=== PATIENT | female | born 1965 | race Caucasian/White ===

== ENCOUNTER → 2022-07-31 | Outpatient (CLI) | payer BC ==
[2022-07-31 14:26] LABS: INR 0.9 (<1.2); Partial Thromboplastin Time 23.6 sec (22.0-30.0); Prothrombin Time 10.1 sec (9.0-12.0)
[2022-07-31 18:26] LABS: HGB 12.2 g/dL (12.0-15.0); MCH 32.8 pg (27.0-32.0); MCV 99.5 fL (80.0-97.0); Mean Platelet Volume 9.4 fL (9.5-12.2); NRBC Per 100 WBC 0 /100 WBCS (0.0-0.0); Platelet Count 251 X 10*3/uL (140-440); RBC 3.72 X 10*6/uL (4.10-5.20)
[2022-07-31 19:23] LABS: Appearance,Urine Clear (Clear); Bilirubin,Urine Negative (Negative); Blood,Urine Negative (Negative); Color,Urine Yellow (Yellow); Ketones,Urine Negative (Negative); Nitrite,Urine Negative (Negative); PH, Urine 7.5 (5.0-8.0); Specific Gravity,Urine 1.015 (1.001-1.030)
[2022-07-31 19:30] LABS: African American GFR (CKD) 118.1 (60.0-200.0); Albumin 4.3 g/dL (3.8-4.9); Albumin/Globulin Ratio 2.05 (1.60-3.17); Anion Gap 11.1 mmol/L (10.00-18.00); BUN/Creat Ratio 24.67 Ratio (12.00-20.00); Blood Urea Nitrogen 14.8 mg/dL (9.0-27.0); Calcium 9.4 mg/dL (8.7-10.3); Carbon Dioxide 27.9 mmol/L (20.0-27.5); Globulin 2.1 g/dL (1.6-3.3); Non-African American GFR(CKD) 101.9 (60.0-200.0); Potassium 4.2 mmol/L (3.5-5.5); Total Bilirubin 0.3 mg/dL (0.30-1.20); Total Protein 6.4 g/dL (6.2-8.2)
== END | disposition home or self-care (01) ==
LOC: LABPAT 12:02
PROVIDERS: ATTEND Orthopaedic Surgery
DX: Z01.818 Encounter for other preprocedural examination (principal); R94.31 Abnormal electrocardiogram [ECG] [EKG]
CPT/HCPCS: 80053; 81003; 85027; 85610; 85730; 87070; 93005

== ENCOUNTER → 2022-08-03 | Outpatient (CLI) | payer BC ==
--- NOTE | 2022-08-03 11:22 | CT ---
EXAMINATION TYPE: CT right knee - [facility] Protocol DATE OF EXAM: 08/03/2022 COMPARISON: NONE HISTORY: Right knee pain and osteoarthritis. CT DLP: 1150 mGycm. Automated Exposure Control for Dose Reduction was Utilized. TECHNIQUE: CT scan of the bilateral lower extremities performed without contrast. FINDINGS: Exam for surgical planning and not for diagnostic purposes. Scanning of the bilateral hips shows evidence of prior ventral wall hernia repair surgery overlying the anterior pelvis. No signifi cant incidental finding otherwise. Scanning of the right knee shows moderate to severe narrowing and moderate spurring lateral tibial fe moral compartment. There is moderate to severe narrowing with mild to moderate spurring patellofemora l compartment. There is moderate to large size suprapatellar joint effusion. There is mild to moderat e narrowing and spurring medial tibial femoral compartment. Varicose veins are present. Images of the bilateral ankles show no significant incidental finding. IMPRESSION: As above.
== END | disposition home or self-care (01) ==
LOC: RADCTMAIN 10:26
PROVIDERS: ATTEND Orthopaedic Surgery
DX: M17.11 Unilateral primary osteoarthritis, right knee (principal); M25.561 Pain in right knee